=== PATIENT | male | born 2000 | race Two or more races ===

== ENCOUNTER 2024-06-23 12:25 | Emergency (ER) | payer MEDICAID, SELFPAY ==
[2024-06-23 12:49] VITALS: BP 147/62; PULSE 100; RESP 18; TEMP 37.2; O2SAT 99; BMI 17.6
--- NOTE | 2024-06-23 12:59 | PD.EDEYE ---
ED Eye Problem RME/HPI General Chief complaint: Eye Problems Stated complaint: POKED LEFT EYE 2 DAYS AGO, WORK COMP Time Seen by Provider: 06/23/24 12:58 Source: patient, RN notes reviewed and old records reviewed Arrival date/time: 06/23/24 12:25 Mode of arrival: ambulatory Limitations: no limitations RME / HPI RME / HPI Narrative: 24yom presents to ED for left eye pain s/p injury 2 days ago. Patient states he was cleaning up brush at work and a tree branch poked his left eye. Patient was wearing contacts at time of injury but was able to remove them yesterday. He c/o left eye redness, irritation and blurry vision. Patient has flushed eye with water without symptom relief. Related Data Previous Rx's ?Medication ?Instructions ?Recorded aluminum-mag hydroxide-simethicone 10 ml PO TID PRN indigestion 12/22/19 400 mg-400 mg-40 mg/5 mL oral susp #3,000 mL (Maalox Maximum Strength) Allergies Allergy/AdvReac Type Severity Reaction Status Date / Time No Known Allergies Allergy Verified 06/23/24 12:27 Review of Systems Review of Systems Systems Reviewed: All systems reviewed, normal except as documented Eyes Eyes: Reports blurry vision and Reports irritation Comments: Reports redness Past Medical History Surgical History OTHER SURGICAL HX: Denies past surgical history Social History SMOKING STATUS: Current every day smoker SUBSTANCE USE: marijuana ALCOHOL: Never Past Medical History Comments PMH COMMENT: Denies past medical history ED Exam General Limitations: Present no limitations General appearance: Present alert and in no apparent distress Head Head exam: Present atraumatic and normocephalic Eye Eye exam: Present PERRL, EOMI and conjunctival injection (left); Absent periorbital swelling ENT ENT exam: Present normal exam and normal oropharynx Neck Neck exam: Present normal inspection and full ROM Chest Chest inspection: Present normal inspection and symmetric chest wall rise Respiratory Respiratory exam: Present normal lung sounds bilaterally; Absent respiratory distress Cardiovascular Cardiovascular exam: Present regular rate and normal rhythm Extremities Exam Extremities exam: Present normal inspection and full ROM Neurological Exam Neurological exam: Present alert and oriented X3 Psychiatric Psychiatric exam: Present normal affect and normal mood Skin Skin exam: Present warm, dry, intact and normal color Course Quality Measures none Orders Category Date Time Status Fluorescein Sodium [[id number]] Med 06/23/24 13:03 Discontinued 1 mg LEFT EYE X1 ONE Proparacaine Op Jennifer 0.5% [Alcaine Op Jennifer 0.5%] Med 06/23/24 13:03 Discontinued See Dose Instructions LEFT EYE X1 ONE Vital Signs Vital signs: Vital Signs Temperature 98.9 F 06/23/24 12:49 Pulse Rate 100 06/23/24 12:49 Respiratory Rate 18 06/23/24 12:49 Blood Pressure 147/62 H 06/23/24 12:49 Pulse Oximetry (%) 99 06/23/24 12:49 Oxygen Delivery Method Room Air 06/23/24 12:49 Procedures -ED Esparza Lamp Exam Left eye: Flourescein uptake:: Yes Esparza Lamp Findings: Corneal abrasion Eye MDM Narrative MDM Narrative:: 24yom presents to ED for left eye pain s/p injury 2 days ago. Patient states he was cleaning up brush at work and a tree branch poked his left eye. He c/o left eye redness, irritation and blurry vision. Patient has flushed eye with water without symtom relief. Exam findings c/w small corneal abrasion. Negative jace. Will rx antibiotic drops, recommended cool compresses. Encouraged f/u with ophthalmology in 2-3 days. Stable for dc, RTED precautions given. Patient data External records reviewed:: [facility] previous records (08/18/23 ED visit for STD testing) Clinical information provided by:: patient Social determinants that could affect healthcare access:: other (specify) (poor access to healthcare) Patient has the following chronic illnesses:: none How is presenting disease/condition affected by chronic disease/condition?: no chronic disease Evaluation data The following diagnostics were reviewed and interpreted by me:: other (specify) (none) Lab and/or radiology exams considered but not ordered:: CT orbits: no evidence of globe or orbit injury Interpretation Summary: none Medications / Prescriptions Medications or Prescriptions considered but not ordered:: none Medication administrations:: Medication Administration History Discontinued Medications Fluorescein Sodium (Fluorescein Sod 1 Mg Strp) 1 mg LEFT EYE X1 ONE Stop: 06/23/24 13:04 Last Admin: 06/23/24 13:18 Dose: 1 mg Documented By: KORI Proparacaine HCl (Proparacaine Op Jennifer 0.5% 15 Ml Btl) 0 drop LEFT EYE X1 ONE Stop: 06/23/24 13:04 Last Admin: 06/23/24 13:18 Dose: 2 drop Documented By: KF above medications administered in ED Consultations Consultation(s) initiated? (list below): No Diagnosis Eye Problem Differential Diagnosis: corneal abrasion, conjunctivitis, acute iritis, periorbital cellulitis and subconjunctival hemorrhage Most likely diagnosis given after review of the tests above:: corneal abrasion Admission Indicated Admission indicated?: not indicated Admission Request Was there a request for admission?: No Disposition Plan Disposition Plan: Discharge Discharge Attestation Discharge Attestation: The patient and all family members were given an opportunity to ask questions and understood the discharge instructions. Discharge instructions specifically effects, indications for sooner follow up or return to the emergency department, and the expected course of current diagnosis. Patient condition: Stable Discharge Plan Plan Patient Disposition: HOME (Self Care) Patient condition on transfer: Stable Prescriptions/Referrals Prescriptions/Med Rec: No Action alum-mag hydroxide-simeth [Maalox Maximum Strength] 400-400-40 mg/5 mL suspension 10 ml PO TID PRN (Reason: indigestion) Qty: 3000 0RF Referrals: No Primary/Family,Physician [Primary Care Provider] - In 1 week Problem List Clinical Impression: Corneal abrasion, left Patient/Caregiver Discharge Instructions Education Materials: ED Corneal Abrasion Additional Instructions: Follow-up with your boiler out in 2 to 3 days. Print Language: Korean Stand Alone Forms: Lola Award Info., Patient Portal Info Letter PA/REYES Supervising Physician PA/[employer] SUPERVISOR Supervising Physician: Yamilet
[2024-06-23] MEDS: PROPARACAINE OP SOL 0.5% 15 ML BTL LEFT EYE (13:18)
[2024-06-23] MEDS: FLUORESCEIN SOD 1 MG STRP LEFT EYE (13:18)
== END 2024-06-23 14:24 | disposition home or self-care (01) ==
PROVIDERS: Emergency Provider Emergency Medicine
DX: S05.02XA Injury of conjunctiva and corneal abrasion without foreign body, left eye, initial encounter (principal); W22.8XXA Striking against or struck by other objects, initial encounter; Y99.0 Civilian activity done for income or pay
CPT/HCPCS: 99283